=== PATIENT | female | born 1955 | race African-American/Black ===

== ENCOUNTER 2016-06-29 08:23 | Emergency (ER) ==
[2016-06-29 08:34] VITALS: BP 126/64
[2016-06-29 09:07] LABS: URINE CULTURE PL NEEDED? NO; URINE SOURCE CLEAN CATCH
[2016-06-29 09:16] LABS: UR AMPHETAMINES QUAL NONE DETECTED (NONE DETECT); UR BARBITUATES QUAL NONE DETECTED (NONE DETECT); UR BENZODIAZEPIN QUAL NONE DETECTED (NONE DETECT); UR CANNABINOIDS QUAL NONE DETECTED (NONE DETECT); UR COCAINE QUAL NONE DETECTED (NONE DETECT); UR MDMA QUAL NONE DETECTED (NONE DETECT); UR METHADONE QUAL NONE DETECTED (NONE DETECT); UR METHAMPHETAMINE QUAL NONE DETECTED (NONE DETECT); UR OPIATES QUAL NONE DETECTED (NONE DETECT); UR OXYCODONE QUAL NONE DETECTED (NONE DETECT); UR PCP QUAL NONE DETECTED (NONE DETECT); UR TCA QUAL PRESUMPTIVE POSITIVE (NONE DETECT)
[2016-06-29 09:17] LABS: BILIRUBIN URINE NEGATIVE (NEGATIVE); BLOOD URINE NEGATIVE (NEGATIVE); CLARITY CLEAR (CLEAR); COLOR YELLOW; GLUCOSE URINE NEGATIVE (NEGATIVE); LEUKOCYTES URINE NEGATIVE (NEGATIVE); NITRITE URINE NEGATIVE (NEGATIVE); PH URINE 6.5; PROTEIN URINE NEGATIVE (NEGATIVE); SP GRAVITY URINE 1.005; UROBILINOGEN URINE NORMAL
[2016-06-29 09:20] LABS: URINE EPITHELIAL CELLS <10 /HPF (<10); URINE WBC <10 /HPF (<10)
[2016-06-29 09:55] LABS: MANUAL DIFF NEEDED? NO
[2016-06-29 09:58] LABS: EOS% 6.9 % (0.0-10.0); HEMATOCRIT 29.6 % (37.0-47.0); HEMOGLOBIN 10.1 g/dL (12.0-16.0); LYMPH# 1.31 X1000 (1.2-3.4); MCH 27.2 PG (27-31); MCHC 34.1 g/dL (33-37); MCV 79.8 FL (81-99); MONO# 0.22 X1000 (0.11-0.59); MONO% 7.6 % (1.7-9.3); MPV 10.3 FL (7.4-10.4); NEUT% 39.5 % (42.2-75.2); PLT 238 X1000 (130-400); RBC 3.71 XMIL (4.2-5.4)
--- NOTE | 2016-06-29 10:38 | PROVIDER DOCUMENTATION ---
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 worse with: exercise, lying down , movement, palpation Any recent injury?: No Similar Symptoms Previously?: Yes Recently seen or treated by another doctor?: Yes Review of Systems - Adult - REVIEW OF SYSTEMS - ADULT Constitutional: denies: chills, fever, night sweats, weight gain, weight loss Eyes: denies: discharge, eye pain, redness Ears, Nose, Mouth & Throat: denies: ear pain, sinus problem, throat swelling Cardiovascular: denies: chest pain, edema, orthopnea, palpitations, syncope Respiratory: denies: chronic cough, shortness of breath, wheezing Gastrointestinal: reports: abdominal pain, constipation, nausea Genitourinary: reports: no symptoms reported Musculoskeletal: reports: back pain Integumentary: reports: no symptoms reported Neurological: reports: no symptoms reported Psychiatric: reports: alcohol/drug dependence Endocrine: reports: no symptoms reported Hematologic/Lymphatic: reports: no symptoms reported Allergic/Immunologic: reports: no symptoms reported, asthma Past History - Adult - PAST MEDICAL HISTORY-ADULT Review of Records: reports: Nursing Assessment Review, Medications Reviewed, Social history reviewed & non-contributory. Cardiovascular: reports: denies history Respiratory: reports: denies history Gastrointestinal: reports: other (prolapsed bladder) Genitourinary: reports: denies history Musculoskeletal: reports: chronic pain (Back) Neurological: reports: denies history Psychiatric: reports: anxiety Endocrine/Immune: reports: Diabetes Diabetes Type: Type 2 Diabetes controlled by:: PO Meds - PRIOR SURGERIES/PROCEDURES Surgical/Procedure History: reports: hysterectomy, back/neck (times 3 ), other ( bladder tac) - PRIOR HOSPITALIZATIONS Prior Hospitalizations: reports: none - IMMUNIZATION STATUS Childhood Immunizations: See Nurse Assessment Flu Vaccine: See Nurse Assessment Physical Exam-Injury Related - Physical Exam-Injury Related Initial Vital Signs Reviewed: Yes General Appearance: appears well, alert, no apparent distress Eyes: PERRL/EOMI, pink conjunctivae Head, Ears, Nose, Mouth & Throat: normocephalic/atraumatic, moist mucous membranes, normal ENT inspection, TMs normal Neck: supple Respiratory: lungs clear Cardiovascular: regular rate, rhythm Peripheral Pulses: radial (R): 2+, radial (L): 2+ Abdominal Exam: soft, no organomegaly, no pulsatile mass, abnormal bowel sounds . negative: abdominal bruit, distended, guarding, hernia Lymphatic: no adenopathy Back Exam: vertebral tenderness Extremity: normal range of motion Integumentary: normal color Neurologic: grossly normal Psych/Mental Status: normal mood/affect Progress - PLAN OF CARE/RESULTS Progress/Plan/Lab Results: ED Follow Up Instructions: You have been treated by a care provider in the Emergency Department. These instructions are being provided to you so you can have an understanding of how to care for yourself upon discharge. Upon discharge from the Emergency Department, you are responsible for making arrangements for follow-up care by a physician of your choice. Take all prescribed medications as directed. Return to the Emergency Department immediately for any new or worsening symptoms. You may call the Physician Referral phone number at [phone] to obtain a list of Physicians who are taking new patients. Laboratory Tests 06/29/16 06/29/16 06/29/16 09:02 09:02 09:43 WBC 2.91 L RBC 3.71 L Hgb 10.1 L Hct 29.6 L MCV 79.8 L MCH 27.2 MCHC 34.1 RDW Std Deviation 14.8 H Plt Count 238 MPV 10.3 Immature Gran % (Auto) 0.0 Neut % (Auto) 39.5 L Lymph % (Auto) 45.0 [place] % (Auto) 7.6 Eos % (Auto) 6.9 Baso % (Auto) 1.0 H Immature Gran # (Auto) 0.00 Neut # (Auto) 1.15 L Lymph # (Auto) 1.31 [place] # (Auto) 0.22 Eos # (Auto) 0.20 Baso # (Auto) 0.03 Urine Source CLEAN CATCH Urine Color YELLOW Urine Clarity CLEAR Urine pH 6.5 Ur Specific [place] 1.005 Urine Protein NEGATIVE Urine Ketones NEGATIVE Urine Blood NEGATIVE Urine Nitrite NEGATIVE Urine Bilirubin NEGATIVE Urine Urobilinogen NORMAL Urine Microscopic RBC Not Reportable Urine WBC NEGATIVE Urine Microscopic WBC <10 Ur Epithelial Cells <10 Urine Glucose NEGATIVE Urine Opiates Screen NONE DETECTED Ur Oxycodone Screen NONE DETECTED Urine Methadone Screen NONE DETECTED Ur Barbituates Screen NONE DETECTED Ur Tricyclics Screen PRESUMPTIVE POSITIVE A Ur Phencyclidine Scrn NONE DETECTED Ur Amphetamines Screen NONE DETECTED U Methamphetamines Scrn NONE DETECTED Urine MDMA Screen NONE DETECTED U Benzodiazepines Scrn NONE DETECTED Urine Cocaine Screen NONE DETECTED U Cannabinoids Screen NONE DETECTED - XRAY 1 XRAY Study: Abdomen Impression: Normal (nad) 2 XRAY Study: Chest Impression: Normal Departure - Departure Time of Disposition Order: 10:40 DIAGNOSIS: Chronic abdominal pain, Chronic prescription opiate use, Chronic leukopenia Chronic low back pain Qualifiers: Back pain laterality: unspecified Sciatica presence: unspecified whether sciatica present Qualified Code(s): M54.5 - Low back pain; G89.29 - Other chronic pain Anemia Qualifiers: Anemia type: unspecified type Qualified Code(s): D64.9 - Anemia, unspecified Disposition: HOME 01 Certified Medical Emergency: Emergent Condition: Stable Additional Instructions: ED Follow Up Instructions: You have been treated by a care provider in the Emergency Department. These instructions are being provided to you so you can have an understanding of how to care for yourself upon discharge. Upon discharge from the Emergency Department, you are responsible for making arrangements for follow-up care by a physician of your choice. Take all prescribed medications as directed. Return to the Emergency Department immediately for any new or worsening symptoms. You may call the Physician Referral phone number at [phone] to obtain a list of Physicians who are taking new patients. Prescriptions: Acetaminophen with Codeine [Tylenol with Codeine #3 Tablet] 1 each PO Q6H PRN PRN #20 tablet PRN Reason: Pain
[2016-06-29] MEDS ORDERED: SORBITOL PO ONE (10:44)
--- NOTE | 2016-06-29 11:56 | Diag Imaging Result Document ---
PROCEDURE NAME: FLAT/UPRIGHT ABD/1 VIEW CHEST - 06/29/2016 PLAIN RADIOGRAPHS OF THE CHEST AND ABDOMEN, 3 VIEWS: COMPARISON: Chest radiograph dated 03/28/2016. FINDINGS: There are unremarkable bowel gas and stool patterns. There is no obstructive bowel pattern. There is no evidence of large-volume free abdominal gas. There is chronic mild elevation of the left hemidiaphragm and suggestion of minimal left basilar atelectasis versus scarring. The lungs are clear otherwise. Cardiac silhouette is unremarkable. IMPRESSION: No definite acute chest or abdominal pathology.
== END 2016-06-29 11:00 | disposition home or self-care (01) ==
LOC: P.ED 08:23
DX: G89.29 Other chronic pain (principal); R10.9 Unspecified abdominal pain; D64.9 Anemia, unspecified; D72.819 Decreased white blood cell count, unspecified; F11.90 Opioid use, unspecified, uncomplicated; M54.5 Low back pain; K59.00 Constipation, unspecified; R11.0 Nausea; E11.9 Type 2 diabetes mellitus without complications
CPT/HCPCS: 36415; 74022; 74177; 80053; 81001; 82150; 83690; 85025; 99283; J2270; J2405; Q9967

== ENCOUNTER 2016-06-29 15:49 | Emergency (ER) ==
[2016-06-29 16:09] LABS: MANUAL DIFF NEEDED? NO
[2016-06-29 16:23] LABS: BASO% 0.6 % (0.0-0.8); EOS% 6.2 % (0.0-10.0); HEMATOCRIT 30.3 % (37.0-47.0); HEMOGLOBIN 10.2 g/dL (12.0-16.0); LYMPH# 1.36 X1000 (1.2-3.4); LYMPH% 42.1 % (20.5-51.1); MCH 27.1 PG (27-31); MCHC 33.7 g/dL (33-37); MCV 80.4 FL (81-99); MONO# 0.21 X1000 (0.11-0.59); MONO% 6.5 % (1.7-9.3); MPV 10.6 FL (7.4-10.4); NEUT% 44.6 % (42.2-75.2); PLT 272 X1000 (130-400); RBC 3.77 XMIL (4.2-5.4)
[2016-06-29 16:32] LABS: AGAP 12; ALKALINE PHOSPHATASE 77 U/L (32-104); AMYLASE 73 U/L (20-200); BUN 7 mg/dL (8-22); CALCIUM 8.7 mg/dL (8.8-10.2); CHLORIDE 109 mmol/L (98-107); COSMO 285; GOT 14 U/L (10-30); GPT 12 U/L (10-36); LIPASE 29 U/L (13-60); POTASSIUM 3.4 mmol/L (3.5-5.1); SODIUM 145 mmol/L (136-145); TCO2 24 mmol/L (25-35); TOTAL BILIRUBIN 0.19 mg/dL (0.20-1.00); TOTAL PROTEIN 6.8 g/dL (6.3-8.3)
--- NOTE | 2016-06-29 17:10 | PROVIDER DOCUMENTATION ---
HPI-Abdominal Pain/GI Problem - General Chief Complaint: Abdominal Pain Stated Complaint: ABD PAIN Time Seen by Provider: 06/29/16 16:47 Source: patient Allergies/Adverse Reactions: Patient Allergies Allergy/AdvReac Type Severity Reaction Status Date / Time ibuprofen [From Motrin] Allergy Intermediate ITCHING Verified 06/29/16 18:21 NSAIDS (Non-Steroidal Allergy Unknown Verified 06/29/16 18:21 Anti-Inflamma - History of Present Illness-ABD Nature of Presenting Problems: Pt is a 61 y/o AA female c chief complaint of suprapubic pain and vaginal pain x 2 days. Pt denies any discharge from vagina. She has had burning c urination. Denies constipation. Denies any STD exposure or sexual activity x 2 years. Pt has a h/o UTIs but states it feels very different. Pt describes the pain as a sharp sensation that is constant and with radiation to her RLQ and R flank. Pt denies fever. On arrival, pt is afebrile and in minimal distress. Review of Systems - Adult - REVIEW OF SYSTEMS - ADULT Constitutional: reports: no symptoms reported. denies: chills, fatique Eyes: reports: no symptoms reported. denies: blurred vision, double vision Ears, Nose, Mouth & Throat: reports: no symptoms reported. denies: ear pain, nose pain, throat pain Cardiovascular: reports: no symptoms reported. denies: chest pain, orthopnea Respiratory: reports: no symptoms reported. denies: cough, shortness of breath Gastrointestinal: reports: abdominal pain. denies: nausea, vomiting Genitourinary: reports: dysuria, flank pain, frequent UTI's. denies: discharge , frequency, hematuria Musculoskeletal: reports: no symptoms reported. denies: bone pain, frequent leg cramps Integumentary: reports: no symptoms reported. denies: itching, rash Neurological: reports: no symptoms reported. denies: numbness, paresthesia Psychiatric: reports: no symptoms reported. denies: anxiety, emotional problems Endocrine: reports: no symptoms reported. denies: cold intolerance, heat intolerance Hematologic/Lymphatic: reports: no symptoms reported. denies: blood clots, low blood count Allergic/Immunologic: reports: no symptoms reported. denies: allergic reactions , food allergy All Other Systems: Reviewed and Negative Past History - Adult - PAST MEDICAL HISTORY-ADULT Review of Records: reports: Old Records Reviewed, Nursing Assessment Review, Medications Reviewed, Social history reviewed & non-contributory. Major Childhood Illnesses: reports: denies history Cardiovascular: reports: denies history Respiratory: reports: denies history Gastrointestinal: reports: other (prolapsed bladder) Obstetrical/Gynecological: reports: denies history Genitourinary: reports: denies history Musculoskeletal: reports: chronic pain (Back) Neurological: reports: denies history Psychiatric: reports: anxiety Endocrine/Immune: reports: Diabetes Other Conditions: reports: denies history - PRIOR SURGERIES/PROCEDURES Surgical/Procedure History: reports: hysterectomy, back/neck (times 3 ), other ( bladder tac) - PRIOR HOSPITALIZATIONS Prior Hospitalizations: reports: none - IMMUNIZATION STATUS Childhood Immunizations: See Nurse Assessment Flu Vaccine: See Nurse Assessment - FAMILY HISTORY Family History: reviewed, not pertinent - SOCIAL HISTORY Smoking: cigarettes Provider spent 3-5 mins advising pt. on dangers of tobacco.: Discussed manners to quit use, and f/u contacts for add'l counseling. Substance Use: none/never Alcohol Use Frequency: never Living Situation: family Physical Exam-General - PHYSICAL EXAM-ADULT Initial Vital Signs Reviewed: Yes - CONSTITUTIONAL General Appearance: appears well, alert, no apparent distress - EYES Eyes: PERRL/EOMI, pink conjunctivae - HEAD, EARS, NOSE, MOUTH & THROAT HENMT: normocephalic/atraumatic, moist mucous membranes, normal ENT inspection - NECK Neck: non-tender, full range of motion, normal inspection - RESPIRATORY Respiratory: chest non-tender, lungs clear, normal breath sounds - CARDIOVASCULAR Cardiovascular: normal peripheral pulses, regular rate, rhythm, no edema - GASTROINTESTINAL (ABDOMEN) Abdominal Exam: normal bowel sounds, non tender, soft - GENITOURINARY Female Genitalia/Pelvic Exam: external exam normal, speculum exam normal, bimanual exam normal, no masses, discharge (WHITE DISCHARGE), other (POST SURGICAL CHANGES). negative: active bleeding, blood - LYMPHATIC Lymphatic: no adenopathy - MUSCULOSKELETAL Back Exam: normal inspection, no CVA tenderness, no vertebral tenderness Extremity: normal range of motion, non-tender, normal gait - SKIN Integumentary: normal color, normal turgor, warm/dry - NEUROLOGIC Neurologic: grossly normal, no motor/sensory deficits - PSYCHIATRIC Psych/Mental Status: normal mood/affect, normal thought content, normal thought process, oriented x 3 Progress - PLAN OF CARE/RESULTS Progress/Plan/Lab Results: Orders Category Date Time Status Pelvic set up DIRECTED Care 06/29/16 20:[address] ABD/PELVIS W/ IV CONT ONLY [CT] Stat Exams 06/29/16 18:19 Taken AMYLASE [CHEM] Stat Lab 06/29/16 16:01 Completed CBC WITH ELECTRONIC DIFF [HEME] Stat Lab 06/29/16 16:01 Completed COMPREHENSIVE METABOLIC PANEL [CHEM] Stat Lab 06/29/16 16:01 Completed LIPASE [CHEM] Stat Lab 06/29/16 16:01 Completed URINALYSIS W/POSS RFLX CULT [URINALYSIS] Stat Lab 06/29/16 20:04 Completed Morphine Med 06/29/16 20:16 Discontinued 4 mg IV NOW ONE Ondansetron [Zofran] Med 06/29/16 20:18 Discontinued 4 mg IV NOW ONE Laboratory Tests 06/29/16 06/29/16 06/29/16 16:01 16:01 16:40 WBC 3.23 L RBC 3.77 L Hgb 10.2 L Hct 30.3 L MCV 80.4 L MCH 27.1 MCHC 33.7 RDW Std Deviation 14.9 H Plt Count 272 MPV 10.6 H Immature Gran % (Auto) 0.0 Neut % (Auto) 44.6 Lymph % (Auto) 42.1 [place] % (Auto) 6.5 Eos % (Auto) 6.2 Baso % (Auto) 0.6 Immature Gran # (Auto) 0.00 Neut # (Auto) 1.44 Lymph # (Auto) 1.36 [place] # (Auto) 0.21 Eos # (Auto) 0.20 Baso # (Auto) 0.02 Sodium 145 Potassium 3.4 L Chloride 109 H Carbon Dioxide 24 L Anion Gap 12 BUN 7 L Creatinine 0.8 Estimated GFR/1.73 m2 > 60 BUN/Creatinine Ratio 9 Glucose 72 Calculated Osmolality 285 Calcium 8.7 L Total Bilirubin 0.19 L AST 14 ALT 12 Alkaline Phosphatase 77 Total Protein 6.8 Albumin 4.0 Globulin 2.8 Albumin/Globulin Ratio 1.4 Amylase 73 Lipase 29 Urine Source CLEAN CATCH Urine Color YELLOW Urine Turbidity CLEAR Urine pH 6.5 Ur Specific [place] 1.014 Urine Protein NEGATIVE Ur Glucose (Stick) NEGATIVE Ur Ketones (Stick) NEGATIVE Urine Blood NEGATIVE Urine Nitrite NEGATIVE Urine Bilirubin NEGATIVE Urobilinogen Dipstick 2 A Urine Leukocytes TRACE A Urine WBC (Auto) <10 Urine RBC (Auto) <10 U Epithel Cells (Auto) <10 Urine Bacteria (Auto) NEGATIVE Vital Signs - 24 hr 06/29/16 06/29/16 15:57 20:14 Temperature 97.4 F L Pulse Rate 87 86 Respiratory 20 18 Rate Blood Pressure 133/80 127/69 O2 Sat by Pulse 100 100 Oximetry - CT/MRI 1 CT Study: Abdomen, Pelvis Impression: Abnormal (SOMEWHAT THICKENED GASTRIC CARDIA BUT IT IS SIMILAR TO PRIOR, NAP OTHERWISE - DR. MALDONADO) Departure - Departure Time of Disposition Order: 22:00 DIAGNOSIS: Yeast vaginitis Abdominal pain Qualifiers: Abdominal location: unspecified location Qualified Code(s): R10.9 - Unspecified abdominal pain Disposition: HOME 01 Certified Medical Emergency: Emergent Condition: Stable Additional Instructions: ED Follow Up Instructions: You have been treated by a care provider in the Emergency Department. These instructions are being provided to you so you can have an understanding of how to care for yourself upon discharge. Upon discharge from the Emergency Department, you are responsible for making arrangements for follow-up care by a physician of your choice. Take all prescribed medications as directed. Return to the Emergency Department immediately for any new or worsening symptoms. You may call the Physician Referral phone number at [phone] to obtain a list of Physicians who are taking new patients. Prescriptions: Fluconazole [Diflucan] 150 mg PO DAILY #2 tablet Tramadol [Ultram] 50 mg PO Q8HR #10 tablet Referrals: Jordon Odne MD [Primary Care Provider] - Sanjay Montes De Oca MD [STAFF PHYSICIAN] - Attestation - Physician/ Mid-level Attestation Patient care was provided by Mid-level provider ([employer]/PA):: Yes Mid-level provider:: Festus Acosta Mid-level documentation review:: The Mid-level provider documentation, treatment plan and medical decision making was reviewed by the physician who agrees with all treatment and medical decision making by the [facility].
[2016-06-29 17:29] LABS: URINE CULTURE NEEDED? NO; URINE MICRO REVIEW NEEDED? NO; URINE SOURCE CLEAN CATCH
[2016-06-29 17:32] LABS: BILIRUBIN URINE NEGATIVE (NEGATIVE); BLOOD URINE NEGATIVE (NEGATIVE); COLOR YELLOW; GLUCOSE URINE NEGATIVE (NEGATIVE); LEUKOCYTES URINE TRACE (NEGATIVE); NITRITE URINE NEGATIVE (NEGATIVE); PH URINE 6.5; PROTEIN URINE NEGATIVE (NEGATIVE); SP GRAVITY URINE 1.014; TURBIDITY URINE CLEAR (CLEAR); UR EPITHELIAL CELLS <10 /HPF (<10); URINE BACTERIA NEGATIVE /HPF; URINE RBC <10 /HPF (<10); URINE WBC <10 /HPF (<10); UROBILINOGEN URINE 2 mg/dL (NORMAL)
[2016-06-29] MEDS ORDERED: MORPHINE IV ONE (20:16)
[2016-06-29] MEDS ORDERED: ZOFRAN IV ONE (20:18)
[2016-06-29 22:15] VITALS: BP 122/71
--- NOTE | 2016-06-29 23:13 | Diag Imaging Result Document ---
PROCEDURE NAME: CT ABD/PELVIS W/ IV CONT ONLY - 06/29/2016 FINDINGS: There is stable linear scarring at the lung bases. The gallbladder is partially contracted. This gives the appearance of a thickened wall. However, no significant surrounding inflammatory changes are appreciated. There are several stable hepatic cysts. The cardia of the stomach appears somewhat thickened and irregular. Although it has a somewhat similar appearance on the previous study, consider EGD or barium swallow to better evaluate. There has been a previous hysterectomy. No focal inflammatory change, free abdominal gas, or free fluid is identified. The remainder of the solid viscera of the abdomen and pelvis and the remainder of the GI tract are essentially stable as compared to the previous study. IMPRESSION: 1. Somewhat thickened mucosa at the cardia of the stomach that is nonspecific but similar to the previous study. Please see above discussion. 2. Other incidental/nonacute findings detailed above but no definite acute pathology. [facility]
== END 2016-06-29 22:15 | disposition home or self-care (01) ==
LOC: ED 15:49
DX: B37.3 Candidiasis of vulva and vagina (principal); R10.9 Unspecified abdominal pain; R10.2 Pelvic and perineal pain; R30.0 Dysuria; R10.31 Right lower quadrant pain; N89.8 Other specified noninflammatory disorders of vagina; G89.29 Other chronic pain; M54.9 Dorsalgia, unspecified; E11.9 Type 2 diabetes mellitus without complications; F17.210 Nicotine dependence, cigarettes, uncomplicated; Z71.6 Tobacco abuse counseling; Z87.440 Personal history of urinary (tract) infections
CPT/HCPCS: 36415; 74177; 80053; 81001; 82150; 83690; 85025; 96374; 96375; J2270; J2405; Q9967

== ENCOUNTER 2016-08-21 18:06 | Emergency (ER) ==
--- NOTE | 2016-08-21 18:28 | PROVIDER DOCUMENTATION ---
HPI-Female /OB/Breast - General Chief Complaint: Female Stated Complaint: FEMALE Time Seen by Provider: 08/21/16 18:24 Source: reports: patient Allergies/Adverse Reactions: Patient Allergies Allergy/AdvReac Type Severity Reaction Status Date / Time ibuprofen [From Motrin] Allergy Intermediate ITCHING Verified 08/21/16 19:37 NSAIDS (Non-Steroidal Allergy Unknown Verified 08/21/16 19:37 Anti-Inflamma Home Medications: Home Medication List Medication Instructions Recorded Confirmed Last Taken Type Phenazopyridine HCl [Pyridium] 100 mg PO BID #6 tablet 07/30/16 08/21/16 Unknown Rx Fluconazole [Diflucan] 150 mg PO DAILY #3 tablet 08/21/16 Unknown Rx Metronidazole 500 mg PO BID #20 tablet 08/21/16 Unknown Rx Phenazopyridine HCl [Pyridium] 100 mg PO TID #6 tablet 08/21/16 Unknown Rx - History of Present Illness-Female /OB Nature of Presenting Problem: 61 y/o BF c/o vagina pain x 1 day. Pt states itching, burning to the area. Denies any dysuria, frequency, urgency. Denies sexual contact x 2 years. Partial hysterectomy. States that itching, burning is mostly on outside of vagina. Denies any d/c, swelling, new soap/lotion. Review of Systems - Adult - REVIEW OF SYSTEMS - ADULT Constitutional: reports: no symptoms reported. denies: chills, fever Eyes: reports: no symptoms reported. denies: blurred vision, double vision Ears, Nose, Mouth & Throat: reports: no symptoms reported. denies: ear pain, nose pain Cardiovascular: reports: no symptoms reported. denies: chest pain, palpitations Respiratory: reports: no symptoms reported. denies: dyspnea on exertion, shortness of breath Gastrointestinal: reports: no symptoms reported. denies: abdominal pain, nausea , vomiting Genitourinary: reports: see HPI, other. denies: dysuria, discharge, frequency, urgency Musculoskeletal: reports: no symptoms reported. denies: joint pain, joint swelling Integumentary: reports: no symptoms reported. denies: nail changes, rash Neurological: reports: no symptoms reported. denies: numbness, paresthesia Psychiatric: reports: no symptoms reported Endocrine: reports: no symptoms reported. denies: cold intolerance, heat intolerance Hematologic/Lymphatic: reports: no symptoms reported. denies: easy bruising, prolonged bleeding Allergic/Immunologic: reports: no symptoms reported All Other Systems: Reviewed and Negative Past History - Adult - PAST MEDICAL HISTORY-ADULT Review of Records: reports: Nursing Assessment Review, Medications Reviewed Gastrointestinal: reports: other (prolapsed bladder, chronic abdominal pain) Genitourinary: reports: chronic UTI's Musculoskeletal: reports: chronic pain (Back) Psychiatric: reports: anxiety Endocrine/Immune: reports: Diabetes - PRIOR SURGERIES/PROCEDURES Surgical/Procedure History: reports: hysterectomy, back/neck (times 3 ), other ( bladder tac) - IMMUNIZATION STATUS Childhood Immunizations: See Nurse Assessment Flu Vaccine: See Nurse Assessment - FAMILY HISTORY Family History: reviewed, not pertinent - SOCIAL HISTORY Smoking: denies Alcohol Use Frequency: never Physical Exam-General - PHYSICAL EXAM-ADULT Initial Vital Signs Reviewed: Yes - CONSTITUTIONAL General Appearance: alert, mild distress - EYES Eyes: pink conjunctivae - HEAD, EARS, NOSE, MOUTH & THROAT HENMT: moist mucous membranes - NECK Neck: normal inspection - RESPIRATORY Respiratory: no respiratory distress - GASTROINTESTINAL (ABDOMEN) Abdominal Exam: normal bowel sounds, non tender, soft. negative: distended, guarding, rigid - GENITOURINARY Female Genitalia/Pelvic Exam: external exam normal, bimanual exam normal, no cerv. motion tender, no masses. negative: active bleeding, blood, discharge, herpes-like ulcerations, lesions, mass, tender adnexa, tender uterus, ulcers - MUSCULOSKELETAL Back Exam: normal inspection Extremity: normal gait, normal inspection - SKIN Integumentary: normal color, normal turgor, warm/dry - NEUROLOGIC Neurologic: negative: aphasia - PSYCHIATRIC Psych/Mental Status: normal mood/affect, normal thought content, normal thought process, oriented x 3 Progress - PLAN OF CARE/RESULTS Progress/Plan/Lab Results: Laboratory Tests 08/21/16 18:13 Urine Source CLEAN CATCH Urine Color YELLOW Urine Clarity CLEAR Urine pH 6.0 Ur Specific [place] 1.010 Urine Protein NEGATIVE Urine Ketones NEGATIVE Urine Blood NEGATIVE Urine Nitrite NEGATIVE Urine Bilirubin NEGATIVE Urine Urobilinogen NORMAL Urine Microscopic RBC Not Reportable Urine WBC NEGATIVE Ur Epithelial Cells <10 Urine Crystals NONE SEEN Urine Bacteria NEGATIVE Urine Casts NONE SEEN Urine Yeast NONE SEEN Urine Glucose NEGATIVE Orders Category Date Time Status CHLAMYDIA AND GC BY PCR URINE [[place]] Stat Lab 08/21/16 18:20 Received GRAM STAIN [DIREX] Stat Lab 08/21/16 19:[address] W/POSS RFLX CULT [URINALYSIS] Stat Lab 08/21/16 18:13 Completed WET PREP [RM] Stat Lab 08/21/16 19:42 Completed Vital Signs Temp Pulse Resp BP Pulse Ox 08/21/16 20:31 97.7 F 95 H 18 121/85 99 08/21/16 18:14 97.9 F 115 H 18 116/72 100 ibuprofen [From Motrin] Allergy (Intermediate, Verified 08/21/16 19:37) ITCHING NSAIDS (Non-Steroidal Anti-Inflamma Allergy (Verified 08/21/16 19:37) Unknown Phenazopyridine HCl [Pyridium] 100 mg PO BID #6 tablet 07/30/16 Fluconazole [Diflucan] 150 mg PO DAILY #3 tablet 08/21/16 Metronidazole 500 mg PO BID #20 tablet 08/21/16 Phenazopyridine HCl [Pyridium] 100 mg PO TID #6 tablet 08/21/16 Laboratory 08/21/16 18:13 Urine Source CLEAN CATCH Urine Color YELLOW Urine Clarity CLEAR Urine pH 6.0 Ur Specific [place] 1.010 Urine Protein NEGATIVE Urine Ketones NEGATIVE Urine Blood NEGATIVE Urine Nitrite NEGATIVE Urine Bilirubin NEGATIVE Urine Urobilinogen NORMAL Urine Microscopic RBC Not Reportable Urine WBC NEGATIVE Ur Epithelial Cells <10 Urine Crystals NONE SEEN Urine Bacteria NEGATIVE Urine Casts NONE SEEN Urine Yeast NONE SEEN Urine Glucose NEGATIVE Departure - Departure Time of Disposition Order: 20:07 DIAGNOSIS: Bacterial vaginosis, Yeast infection Disposition: HOME 01 Certified Medical Emergency: Emergent Condition: Stable Additional Instructions: Follow up with specialist for further management. Take medications as directed. ED Follow Up Instructions: You have been treated by a care provider in the Emergency Department. These instructions are being provided to you so you can have an understanding of how to care for yourself upon discharge. Upon discharge from the Emergency Department, you are responsible for making arrangements for follow-up care by a physician of your choice. Take all prescribed medications as directed. Return to the Emergency Department immediately for any new or worsening symptoms. You may call the Physician Referral phone number at [phone] to obtain a list of Physicians who are taking new patients. Prescriptions: Fluconazole [Diflucan] 150 mg PO DAILY #3 tablet Metronidazole 500 mg PO BID #20 tablet Phenazopyridine HCl [Pyridium] 100 mg PO TID #6 tablet Referrals: Chelsea Marsh CRNP [Primary Care Provider] - Trina Graves MD [STAFF PHYSICIAN] - Forms: Return to School/Parent Work Instructions: Yeast Infection of the Skin, [id number], Phenazopyridine tablets, Bacterial Vaginosis, [id number], Fluconazole tablets, Metronidazole tablets or capsules Attestation - Physician/ SUGEY Attestation Patient care was provided by Advanced Practice Provider:: Yes Advanced Practice Provider:: Michelle Luu Advanced Practice Provider documentation review:: The Mid-level provider documentation, treatment plan and medical decision making was reviewed by the physician who agrees with all treatment and medical decision making by the P.
[2016-08-21 18:46] LABS: URINE SOURCE CLEAN CATCH
[2016-08-21 18:47] LABS: URINE CULTURE PL NEEDED? NO
[2016-08-21 18:52] LABS: BILIRUBIN URINE NEGATIVE (NEGATIVE); BLOOD URINE NEGATIVE (NEGATIVE); CLARITY CLEAR (CLEAR); COLOR YELLOW; GLUCOSE URINE NEGATIVE (NEGATIVE); LEUKOCYTES URINE NEGATIVE (NEGATIVE); NITRITE URINE NEGATIVE (NEGATIVE); PROTEIN URINE NEGATIVE (NEGATIVE); UROBILINOGEN URINE NORMAL
[2016-08-21 19:05] LABS: URINE CAST NONE SEEN /LPF; URINE CRYSTAL NONE SEEN /HPF; URINE EPITHELIAL CELLS <10 /HPF (<10)
[2016-08-21 20:32] VITALS: BP 121/85
== END 2016-08-21 20:32 | disposition home or self-care (01) ==
LOC: P.ED 18:06
DX: N76.0 Acute vaginitis (principal); B37.3 Candidiasis of vulva and vagina; R10.2 Pelvic and perineal pain; L29.2 Pruritus vulvae; Z87.440 Personal history of urinary (tract) infections; M54.9 Dorsalgia, unspecified; G89.29 Other chronic pain; E11.9 Type 2 diabetes mellitus without complications
CPT/HCPCS: 81001; 87205; 87210; 87491; 87591; 99284